=== PATIENT | female | born 1975 | race Caucasian/White ===

== ENCOUNTER 2017-06-19 08:46 | Emergency (ER) | payer OTHER ==
[~2017-06-19] VITALS: Ht 165.1 cm; Wt 83.9 kg
[2017-06-19] MEDS ORDERED: LISINOPRIL20 MG PO (09:04)
[2017-06-19] MEDS ORDERED: HYDROCHLOROTH12.5 M1 PO (09:09)
[2017-06-19] MEDS ORDERED: ADDERALL 20 MG20 M1 PO (09:09)
[2017-06-19] MEDS ORDERED: LEXAPRO 10 MG T10 M2 PO (09:10)
[2017-06-19 11:55] VITALS: BP 103/61
== END 2017-06-19 11:58 | disposition home or self-care (01) ==
LOC: M.ERS 08:46
DX: R51 Headache (principal); Z91.041 Radiographic dye allergy status

== ENCOUNTER 2018-02-18 09:12 | Emergency (ER) | payer OTHER ==
[~2018-02-18] VITALS: Ht 165.1 cm; Wt 90.7 kg
[~2018-02-18 09:12] MED LIST: ADDERALL 20 MG20 M1 PO; HYDROCHLOROTH12.5 M1 PO; LEXAPRO 10 MG T10 M2 PO; LISINOPRIL20 MG PO
[2018-02-18 10:31] VITALS: BP 148/87
== END 2018-02-18 10:32 | disposition home or self-care (01) ==
LOC: M.ERS 09:12
DX: R51 Headache (principal); I10 Essential (primary) hypertension; Z88.0 Allergy status to penicillin; Z91.041 Radiographic dye allergy status

== ENCOUNTER 2019-06-05 15:46 | Emergency (ER) | payer OTHER ==
[~2019-06-05] VITALS: Ht 165.1 cm; Wt 90.7 kg
[2019-06-05] MEDS ORDERED: AMBIEN CR 6.26.25 MG PO (15:56)
[2019-06-05] MEDS ORDERED: ESCITALOPRA5 MG/5 ML PO (15:57)
[2019-06-05] MEDS ORDERED: MOBIC7.5 MG PO (15:57)
[2019-06-05] MEDS ORDERED: MIRAPEX 0.250.25 M1 PO (15:58)
[2019-06-05] MEDS ORDERED: KEFLEX500 M1 PO (17:18)
[2019-06-05] MEDS ORDERED: NORCO 5-325 TA1 EAC1 PO (17:18)
[2019-06-05 17:28] VITALS: BP 154/85
== END 2019-06-05 17:29 | disposition home or self-care (01) ==
LOC: M.ERS 15:46
DX: S61.211A Laceration without foreign body of left index finger without damage to nail, initial encounter (principal); I10 Essential (primary) hypertension; N80.9 Endometriosis, unspecified; G43.909 Migraine, unspecified, not intractable, without status migrainosus; Z98.51 Tubal ligation status; Z91.041 Radiographic dye allergy status; W26.8XXA Contact with other sharp object(s), not elsewhere classified, initial encounter; Y93.89 Activity, other specified; Y92.89 Other specified places as the place of occurrence of the external cause; Y99.8 Other external cause status